=== PATIENT | male | born 1980 | race Caucasian/White ===

== ENCOUNTER 2018-10-18 10:46 | Emergency (ER) | payer MEDICAID ==
[~2018-10-18] VITALS: Ht 182.9 cm; Wt 90.7 kg
[2018-10-18 11:31] VITALS: BP 140/88
== END 2018-10-18 12:44 | disposition home or self-care (01) ==
LOC: ER 10:48
DX: H92.01 Otalgia, right ear (principal); F17.200 Nicotine dependence, unspecified, uncomplicated; Z98.890 Other specified postprocedural states; Z88.0 Allergy status to penicillin; Z60.2 Problems related to living alone